=== PATIENT | male | born 1985 | race African-American/Black ===

== ENCOUNTER 2019-07-25 09:39 | Emergency (ER) | payer OTHER ==
[~2019-07-25] VITALS: Ht 185.4 cm; Wt 82.0 kg
[2019-07-25] MEDS ORDERED: LIDOCAINE HCL 1% 20ML VIAL (Pyxis) INJ INFIL ONE (10:15)
[2019-07-25 10:28] VITALS: BP 127/81
== END 2019-07-25 10:29 | disposition home or self-care (01) ==
LOC: ER 09:39
DX: S70.252A Superficial foreign body, left hip, initial encounter (principal); G40.909 Epilepsy, unspecified, not intractable, without status epilepticus; Y35.893A Legal intervention involving other specified means, suspect injured, initial encounter; Y93.89 Activity, other specified; Y92.89 Other specified places as the place of occurrence of the external cause
CPT/HCPCS: 99283; J3490